=== PATIENT | male | born 1945 | race Caucasian/White ===

== ENCOUNTER → 2016-09-28 | Outpatient (CLI) | payer MEDICARE ==
[2016-09-28 15:30] LABS: CH 29.6; CHCM 34.1; HCT 53.2 % (39.0-53.0); HDW 3.21; HGB 17.6 gm/dL (13.0-17.5); MCH 28.7 pg (25.0-35.0); MCV 87.2 fL (80.0-100.0); Mean Platelet Volume 6.6; RBC 6.11 m/uL (4.30-5.90); WBC 9.6 k/uL (3.8-10.6)
[2016-09-28 15:40] LABS: Anion Gap 12 mmol/L; Blood Urea Nitrogen 16 mg/dL (9-20); Carbon Dioxide 28 mmol/L (22-30); Chloride 102 mmol/L (98-107); Non-African American GFR(MDRD) >60 (>60 ml/min/1.73 sqM); Potassium 4.2 mmol/L (3.5-5.1); Sodium 142 mmol/L (137-145)
== END ==
LOC: LABPAT 15:02
PROVIDERS: ATTEND Internal Medicine Interventional Cardiology
DX: I50.32 Chronic diastolic (congestive) heart failure (principal)
CPT/HCPCS: 80051; 82565; 84520; 85027

== ENCOUNTER 2016-10-11 06:07 | Day surgery (SDC) | payer MEDICARE ==
[2016-10-07 11:43] VITALS: BMI 36.9
[~2016-10-11 06:07] MED LIST: ALPRAZolam 0.25 MG TAB PO PRN; ALPRAZolam 0.5 MG TAB PO PRN; ASPIRIN 325 MG TAB PO STA; ATORVASTATIN 80 MG TAB PO STA; NITROGLYCERIN SL TABS 0.4 MG TAB SUBLINGUAL PRN; SODIUM CHLORIDE 0.9% 1,000 ML in EMPTY BAG 1 BAG IV ONE
[2016-10-11 06:54] VITALS: RESP 18
[2016-10-11] MEDS: MIDAZOLAM 2 MG/2 ML VIAL IV ONE ×3 (07:33→07:46)
[2016-10-11] MEDS: fentaNYL (PF) 50 MCG/ML 2 ML AMP IV ONE ×2 (07:33→07:37)
[2016-10-11] MEDS: BENZOCAINE SPRAY 100 APPLIC/CAN MUCOUS MEM ONE ×2 (07:33→07:37)
[2016-10-11] MEDS ORDERED: LIDOCAINE 2% INJ 20 MG/ML SQ ONE (08:18)
[2016-10-11] MEDS ORDERED: HYDROmorphone 2 MG/ML 1 ML SYRINGE ONE (08:20)
[2016-10-11] MEDS ORDERED: HYDROmorphone 2 MG/ML 1 ML SYRINGE IVP ONE (08:21)
[2016-10-11] MEDS ORDERED: LIDOCAINE 2% INJ 20 MG/ML (20 ML MDV) ONE (08:24)
[2016-10-11] MEDS ORDERED: IOHEXOL 350 MG/ML 100 ML BOTTLE INJ ONE (08:51)
[2016-10-11] MEDS ORDERED: RX INFO: IV CONTRAST WAS GIVEN 1 EACH MISC MISCELLANE PRN (08:56)
[2016-10-11] MEDS ORDERED: SODIUM CHLORIDE 0.9% 1,000 ML IV SCH (09:00)
[2016-10-11] MEDS ORDERED: guaiFENesin SYRUP 100MG/5ML 200 MG/10 ML CUP PO PRN (09:52)
[2016-10-11] MEDS ORDERED: MIDAZOLAM 2 MG/2 ML VIAL IV ONE (11:55)
[2016-10-11] MEDS ORDERED: MIDAZOLAM 2 MG/2 ML VIAL ONE (11:58)
--- NOTE | 2016-10-11 14:22 | ECHOT ---
DATE OF SERVICE: 10/11/2016 PERFORMING PHYSICIAN: Ced Schwarz MD, Steel E[employer]ctor Apprentice. PROCEDURE PERFORMED: Transesophageal echocardiogram. INDICATION: This is a pleasant 71-year-old gentleman who was experiencing severe exertional dyspnea with unknown etiology. The transesophageal echocardiogram is to rule out any intracardiac shunts. SEDATION: Conscious sedation was performed using a total of 5 mg of Versed on divided doses along with 50 mcg of fentanyl. COMPLICATIONS: None. LEVEL OF SEDATION: Moderate. PROCEDURE DESCRIPTION: After obtaining an informed consent, explaining the procedure, benefits, risks, complications and alternatives, the patient was brought to the transesophageal echocardiogram suite. A pulse oximetry and heart rate monitors were attached to the patient prior to the procedure. The patient's throat was sprayed using lidocaine locally. Following that, the patient was turned into left lateral position. A bite guard was placed and the patient was then sedated with the above doses of Versed and fentanyl in divided doses. Following that, the transesophageal echocardiogram probe was advanced through the bite guard into the mid esophagus where 2-D echocardiogram images as well as color Doppler images of various cardiac structures were obtained. We evaluated the interatrial septum using 2-D echocardiogram, color Doppler, and contrast study. The procedure was completed. There were no complications. FINDINGS: The left ventricular dimension and systolic function appeared to be within normal limits. The left ventricular systolic function appeared to be in the range of 60% with a normal wall motion. The right ventricle is of normal size and function. The left atrium and right atrium are mildly dilated. The left atrial appendage appeared to be free from any thrombus. The interatrial septum appeared to be intact without any evidence of shunt. The aortic valve is mildly thickened without stenosis or regurgitation with what seems to be degenerative changes on the aortic side of the valve. The mitral valve seems to mildly thickened with mild MR. There was mild tricuspid regurgitation seen. CONCLUSION: 1. There is no evidence of any intracardiac shunts seen. 2. Normal left atrial appendage without any evidence of thrombus. 3. Intact intra-atrial septum. 4. Normal left ventricular dimension and systolic function. 5. Aortic sclerosis without stenosis with mild insufficiency. 6. Mitral annular calcifications with mild mitral regurgitation. 7. Normal tricuspid valve and pulmonic valve. 8. No evidence of pericardial effusion. FINDINGS: FINAL IMPRESSION:
[2016-10-11] MEDS ORDERED: ACETAMINOPHEN TAB 325 MG TAB PO PRN (14:38)
[2016-10-11] MEDS ORDERED: amLODIPine 10 MG TAB PO STA (15:26)
[2016-10-11 17:08] VITALS: BP 177/88; PULSE 74; TEMP 98.2
--- NOTE | 2016-10-11 22:52 | CC ---
DATE OF SERVICE: 10/11/2016 PERFORMING PHYSICIAN: Ced Schwarz M.D., pick up. PROCEDURES PERFORMED: 1. Right heart catheterization. 2. Selective right and left coronary angiogram. 3. Left heart catheterization. INDICATION: This is a pleasant 71-year-old gentleman who was experiencing severe exertional dyspnea of unknown etiology. SEDATION: Conscious sedation was performed using 1 mg of Versed. Sedation length was about 45 minutes. APPROACH: Right common femoral vein and right common femoral artery. COMPLICATIONS: None. PROCEDURE DESCRIPTION: After obtaining informed consent, the patient was brought to the cardiac labor and employment paralegal. The right common femoral vein was cannulated using micropuncture technique, and the micropuncture wire passed easily. Then I placed an 8 Vietnamese sheath in the right common femoral vein. The right common femoral artery was cannulated using the same technique, and I placed a 6 Vietnamese sheath in the right common femoral artery. After that I did right heart catheterization using a 6 Vietnamese [place] catheter. Subsequently I did selective right and left coronary angiogram. Then I did left heart catheterization using a 6 Vietnamese pigtail catheter. The procedure was completed without any complication. HEMODYNAMICS: 1. Right atrial pressure was 11 mmHg. 2. Right ventricular pressures were as follow: systolic 38 and end-diastolic of 14 mmHg. 3. Pulmonary artery pressures were as follow: systolic 45, diastolic 25, mean 32 mmHg. 4. Pulmonary capillary wedge pressure was 15 mmHg. 5. Left ventricular end-diastolic pressure was 12 mmHg. SELECTIVE CORONARY ANGIOGRAM: 1. The right coronary artery is a large-caliber vessel and it is a dominant vessel. The right coronary artery appeared to be calcified with mild disease in the proximal and mid portion only. Distally it bifurcates into PDA and PLV branches; both have mild diffuse disease only. 2. The left main is a large-caliber vessel. It is angiographically normal. It bifurcates into the left circumflex and left anterior descending artery. 3. The left circumflex is a large-caliber vessel. It is a non-dominant vessel. The proximal circumflex gives rise to the first obtuse marginal branch, which is a large-caliber vessel and seems to be angiographically normal. The mid circumflex is normal and gives rise to the second OM branch, which seems to be angiographically normal. Then the circumflex continues as a small-caliber vessel in the AV groove. 4. Left anterior descending artery. The proximal LAD appeared to be angiographically normal. It gives rise to the first diagonal branch, which seems to be angiographically normal. The mid LAD after the first diagonal appeared to be calcified with a lesion that appeared to be in the range of 30% to 40%. After that, the LAD gives rise to a second diagonal which seems to be angiographically normal, and the LAD distally is angiographically normal. CONCLUSION: 1. Mild pulmonary hypertension. 2. Intermediate disease involving the mid LAD that appeared to be in the range of 30% to 40%. POST-PROCEDURE MANAGEMENT: 1. Maximize medical treatment. 2. Followup with the patient.
--- NOTE | 2016-10-11 23:31 | LTR ---
October 11, 2016 RE: Aleksandar Reyes Dear Dr. Whitaker: As we discussed on the phone, Mr. Aleksandar Reyes underwent a transesophageal echocardiogram along with a right and left heart catheterization. The transesophageal echocardiogram showed no evidence of any intracardiac shunts. Right heart catheterization showed mild pulmonary hypertension. The left heart catheterization showed intermediate disease. Intermediate coronary artery disease involving the mid LAD appeared to be in the range of 30% to 40%. I think the combination of the mild pulmonary hypertension as well as the coronary artery disease could be responsible for his exertional dyspnea. I recommended obtaining ( ) study as an outpatient as well as maximize medical treatment including aspirin and statin. I want to thank you for allowing me to participate in his care and please do not hesitate to call if you have any questions or concerns. Sincerely, HUSSEIN JOSHUA MD
== END 2016-10-11 16:30 | disposition home or self-care (01) ==
LOC: CATHCVL 06:07
PROVIDERS: ATTEND Internal Medicine Interventional Cardiology
DX: I27.2 Other secondary pulmonary hypertension (principal); I25.10 Atherosclerotic heart disease of native coronary artery without angina pectoris; I10 Essential (primary) hypertension; E78.5 Hyperlipidemia, unspecified; I35.8 Other nonrheumatic aortic valve disorders; M19.90 Unspecified osteoarthritis, unspecified site; J45.909 Unspecified asthma, uncomplicated; Z82.49 Family history of ischemic heart disease and other diseases of the circulatory system; Z79.51 Long term (current) use of inhaled steroids; Z79.52 Long term (current) use of systemic steroids; Z79.899 Other long term (current) drug therapy
CPT/HCPCS: 93312; 93320; 93325; 93460; 99152 ×2; 99153 ×3; C1769 ×3; C1894 ×2; J2001; J2250; J1170; Q9967; J3010

== ENCOUNTER → 2017-07-30 | Outpatient (CLI) | payer MEDICARE | END | disposition home or self-care (01) | LOC: RADMRIMAIN 06:57 | PROVIDERS: ATTEND Orthopaedic Surgery ==

== ENCOUNTER → 2018-01-19 | Outpatient (CLI) | payer MEDICARE ==
[2018-01-19 10:17] LABS: Basophils # (A) 0.1 k/uL (0-0.2); Basophils % (A) 1 %; Eosinophils # (A) 0.5 k/uL (0-0.7); Eosinophils % (A) 6 %; HCT 49.8 % (39.0-53.0); HGB 16.5 gm/dL (13.0-17.5); Lymphocytes # (A) 0.9 k/uL (1.0-4.8); Lymphocytes % (A) 10 %; MCH 28.5 pg (25.0-35.0); MCHC 33.1 g/dL (31.0-37.0); MCV 86.2 fL (80.0-100.0); Mean Platelet Volume 7.2; Monocytes # (A) 0.5 k/uL (0-1.0); Monocytes % (A) 5 %; Neutrophils # (A) 7.1 k/uL (1.3-7.7); Neutrophils % (A) 77 %; Platelet Count 143 k/uL (150-450); RBC 5.78 m/uL (4.30-5.90); WBC 9.3 k/uL (3.8-10.6)
[2018-01-19 10:23] LABS: Total Eosinophil Count 510 #EOS/uL (150-300)
[2018-01-19 18:16] LABS: Alternaria alternata IgE <0.10 kU/L; Birch IgE <0.10 kU/L; Cat Epith & Dander IgE <0.10 kU/L; Cockroach IgE <0.10 kU/L; Dermato. farinae IgE <0.10 kU/L; Dog Dander IgE <0.10 kU/L; Elm IgE <0.10 kU/L; Maple (Box Elder) IgE <0.10 kU/L; Oak IgE <0.10 kU/L; Ragweed,Common IgE <0.10 kU/L; Red Top (Bentgrass) IgE <0.10 kU/L
== END | disposition home or self-care (01) ==
LOC: LABWHC1 09:28
PROVIDERS: ATTEND Internal Medicine
DX: M19.90 Unspecified osteoarthritis, unspecified site (principal)
CPT/HCPCS: 36415; 82785; 85008; 85025; 86003